=== PATIENT | female | born 1985 | race Caucasian/White ===

== ENCOUNTER 2019-06-05 15:15 | Outpatient (RCR) | payer OTHER, SELFPAY ==
[2019-06-05 17:47] VITALS: BP 109/67; PULSE 98
== END 2019-07-07 08:28 | disposition home or self-care (01) ==
LOC: ANHOBOP 15:15
PROVIDERS: Visit Provider Obstetrics & Gynecology
DX: O36.8190 Decreased fetal movements, unspecified trimester, not applicable or unspecified (principal); Z3A.00 Weeks of gestation of pregnancy not specified
CPT/HCPCS: 59025

== ENCOUNTER 2020-07-22 11:04 | Emergency (ER) | payer OTHER, SELFPAY ==
--- NOTE | ~2020-07-22 | XR_ITS ---
EXAMINATION: XR lumbar spine min 4V DATE: 07/22/2020 12:33 INDICATION: Low back pain TECHNIQUE: Anteroposterior, lateral, and bilateral oblique views of the lumbar spine, and cone-down l ateral view of the lumbosacral junction were obtained. COMPARISON: 09/24/2008 FINDINGS: There is no fracture, dislocation, or subluxation. The vertebral body heights, alignment, a nd intervertebral disc spaces are normal. The paravertebral soft tissues are unremarkable. IMPRESSION: 1. No acute osseous abnormality. Reviewed, dictated and finalized at location A. ER EXPLOSION
[2020-07-22 11:11] VITALS: BP 117/81; PULSE 100; RESP 18; TEMP 36.1; O2SAT 100
--- NOTE | 2020-07-22 13:14 | ED.GENADULT ---
HPI - General Adult General Chief complaint: Back Pain/Injury Stated complaint: back pain Time Seen by Provider: 07/22/20 11:30 Source: patient Mode of arrival: ambulatory Limitations: no limitations History of Present Illness HPI narrative: Patient presents with chief complaint of lumbar pain and spasming that has been intermittent over the past year since the patient had her daughter. Patient states the pain starts in the center lower back and radiates outward. Patient denies loss of bowel or bladder function or saddle paresthesias. Patient states that she has not yet been evaluated for this issue by her primary care. Patient denies any other back injuries or traumas. Patient denies radiation of pain down her legs or loss of motor function to her lower extremities. Related Data Home Medications Medication Instructions Recorded Confirmed ketoconazole TOPICAL 07/22/20 07/22/20 Allergies Allergy/AdvReac Type Severity Reaction Status Date / Time No Known Allergies Allergy Verified 07/22/20 11:15 Review of Systems Review of Systems: Narrative: CONSTITUTIONAL: Denies fever, chills, or sweats. EYES: Denies visual changes, redness, or discharge. ENT: Denies rhinorrhea, congestion, sore throat, or otalgia. CARDIOVASCULAR: Denies chest pain, palpitations, or edema. RESPIRATORY: Denies cough or dyspnea. GASTROINTESTINAL: Denies abdominal pain, nausea, vomiting, or diarrhea. GENITOURINARY: Denies dysuria or hematuria. SKIN: Denies rash or itching. MUSCULOSKELETAL: Reports back pain, denies joint pain, or myalgia. NEUROLOGIC: Denies headache, numbness, dizziness, or weakness. PSYCHIATRIC: Denies anxiety or depression. PMFSH Social History Social History Smoking status: Never smoker Substance use: current Gender identity (if verbalized by the patient): Female Spiritual care concerns: No Exam Narrative: Exam Narrative: GENERAL: Well-appearing, well-nourished, and in no acute distress. HEAD: Normocephalic, atraumatic. EYES: PERRLA and EOMI. NECK: Supple. No adenopathy or masses. CHEST: Clear to auscultation. No respiratory distress. No wheezes rales or rhonchi HEART: Regular rate and rhythm. No murmur heard. Normal peripheral pulses. BACK: Tender to palpation in center lower back as well as paralumbar muscles. Straight leg raise test negative. No saddle paresthesias or loss of range of motion or sensation to lower extremities. EXTREMITIES: Normal range of motion. No edema. SKIN: Warm, dry, no rash. NEURO: No focal deficits. Alert and oriented x3. PSYCH: Normal mood and affect. Course Vital Signs Vital signs: Vital Signs Temperature 97 F L 07/22/20 11:11 Pulse Rate 100 07/22/20 11:11 Respiratory Rate 18 07/22/20 11:11 Blood Pressure 117/81 07/22/20 11:11 Pulse Oximetry 100 07/22/20 11:11 Temperature 97 F L 07/22/20 11:11 Pulse Rate 100 07/22/20 11:11 Respiratory Rate 18 07/22/20 11:11 Blood Pressure 117/81 07/22/20 11:11 Pulse Oximetry 100 07/22/20 11:11 Medical Decision Making MDM Narrative Medical decision making narrative: Patient not show signs of cauda equina or other emergent spinal injury. Patient will be put on prednisone and given cyclobenzaprine. Patient encouraged to practice core strengthening exercises to assist with strain on back. Patient referred to contact her primary care to discuss possible physical therapy or supportive device recommendations. Patient told that if her symptoms persist physical therapy and MRI may be needed to further investigate her symptoms and will be ordered by her primary care provider. Patient to return to emergency department if she has any emergent symptoms. Differential Diagnosis Differential Diagnosis: Cauda equina, fracture, sprain, strain, sciatica Vital Signs Vital Signs: Vital Signs Temperature 97 F L 07/22/20 11:11 Pulse Rate 100 07/22/20 11:11 Resp
[2020-07-22] MEDS: KETOROLAC 30 MG/ML VIAL (*BKC) IM (13:44)
[2020-07-22 13:45] VITALS: BP 126/72; PULSE 82; RESP 16; O2SAT 98
== END 2020-07-22 13:45 | disposition home or self-care (01) ==
PROVIDERS: Emergency Provider Emergency Medicine; PCP Family Medicine
DX: S39.012A Strain of muscle, fascia and tendon of lower back, initial encounter (principal); X58.XXXA Exposure to other specified factors, initial encounter
CPT/HCPCS: 72110; 81025; 96372; 99283; J1885

== ENCOUNTER 2020-10-04 11:00 | Outpatient (RCR) | payer OTHER, SELFPAY ==
--- NOTE | 2020-09-02 10:12 | PTOPEVAL ---
Thank you for referring Jayla Doan to [facility].? The patient is scheduled to be seen for therapy? 2 x/week for 5 weeks. Please review, sign, date and return this plan of care SAM. I agree with and certify that the following plan of care is medically necessary. Referring Physician Date Attending Provider: María Owusu, MD Referring Provider: María Owusu, MD Physical Therapy Evaluation Problem Diagnosis back pain Onset 06/25 Cause epidural injection Subjective Information She reports she has been Query Text:As Reported By Patient/ having back pain since the Family of her child 06/25. She also had increased pain with leaning forward over exercise ball and a yoga trapez when she had severe increased pain in her back region. She reports limitations with community mobility. She is performing stretching, but not able to relieve the symptoms. She c/o back spasm that limit ability to perform daily task She has increased pain with leaning forward. She notes increased pain with carrying her son. She reports limitations with prolonged standing and repeated IADL's. She has increased muscle soreness in the morning. She will feel the muscle soreness into her abdominal region. Previous Treatments For This Problem neck/back- 10 yrs ago Pain Assessment Bilateral Lower Back Reported Pain Level 2 Pain Description Aching,Pulling,Radiating, Soreness,Spasms,Stabbing, Tender on Palpation,Tightness, With Movement Pain Radiation Left Leg,Right Leg Radicular Pain Location pelvic and LE's Pain Frequency Chronic,Continuous Lowest Pain Intensity 1 Greatest Pain Intensity 10 Pain Aggravating Factors ADL's,Bending,Lifting, Prolonged Position,Walking, Weight Bearing/Standing Cervical and Lumbar ROM Lumbar ROM WNL Lower Extremity Range of Motion General Lower Extremity Range of Motion Reason Not Measured WNL/Left,WNL/Right Cervical and Lumbar Muscle Testing Upper Abd
--- NOTE | 2020-09-16 09:58 | PCPTNOTE ---
Patient called at 10:00 am & cancelled scheduled appointment this date due to transportation. She rescheduled for next week.
--- NOTE | 2020-09-22 13:11 | PCPTNOTE ---
Patient called & cancelled scheduled appointment this date due to reason not given. Appointment scheduled for next week.
--- NOTE | 2020-09-28 16:25 | PTOPEVAL ---
Thank you for referring Jayla Doan to [facility].? The patient is scheduled to be seen for therapy? 2 x/week for 3 weeks. See update below for noted improvement and problems to address. Please review, sign, date and return this plan of care SAM. I agree with and certify that the following plan of care is medically necessary. Referring Physician Date Attending Provider: María Owusu, MD Referring Provider: María Owusu, MD Physical therapy progress note Problem Diagnosis back pain Onset 06/25 Cause epidural injection Additional Evaluation Detail She reports she has been having back pain since the of her child 06/25. RA with joint pain with weather changes. Subjective Information She bought a massager for home Query Text:As Reported By Patient/ that has helped with her pain Family and tightness. She continues wake with muscle soreness. She is able to walk 1 to 1 1/ 2 hours before increased pain. She is performing stretching and home program multiple times a week depending on soreness. She denies any back spasm with daily activities. Denies any radiating pain into the leg. Continues to have tightness of sacral/pelvic region Pain Assessment Self Report Pain Assessment Bilateral Lower Back Reported Pain Level 2 Pain Description Aching,Sharp Pain Frequency Chronic Lowest Pain Intensity 1 Greatest Pain Intensity 7 Pain Aggravating Factors Exercise/Activity,Lifting, Prolonged Position,Walking Cervical and Lumbar ROM Lumbar ROM Lumbar Flexion Active Floor Query Text:Hands to: Lateral Flexion lateral knee joint Query Text:Active Hands to: Lumbar ROM WNL Lumbar Comments stretching into low back with lateral flex Lower Extremity Muscle Strength Testing General Lower Extremity Strength Gross Lower Extremity Strength reza hip ext: 4/5, hip abd: 3+/ 5 reza knee ext: 5/5, knee flex: 5/5 Muscle Length Testing Muscle Length Testing Two-Joint Hip Flexor Shortened Muscles Short (R) Iliopsoas,Short (L) Iliopsoas,Short (R) Rectus Femoris,Short (L)
--- NOTE | 2020-10-06 14:36 | PCPTNOTE ---
Patient cancelled apt this date due to not feeling well.
--- NOTE | 2020-10-11 12:23 | PCPTNOTE ---
Patient no showed for apt this date. Called and left voicemail reminding patient of next scheduled apt and to call if she cannot make it.
--- NOTE | 2020-10-14 13:52 | PCPTNOTE ---
Patient did not show up for scheduled appointment this date. Called pt. and left message with details regarding next appt time also.
--- NOTE | 2020-10-18 11:46 | PCPTNOTE ---
Patient did not show up for scheduled appointment this date. Called left message informing her remaining appts will be removed. Will DC her at this time.
--- NOTE | 2020-10-18 11:48 | PCPTNOTE ---
Admitting Provider: Attending Provider: María Owusu, Patient:Jayla Doan Date of :1985 Discharge Note Patient has not returned for any further treatments since 10/04/2020, therefore she will be discharged at this time. Patient?s initial visit was on 09/02/2020 09:00 and she had a total of 6 visits with 6 no show/canceled visits. The goals have been partially met with no change in function since last update on 09/28/20. Thank you for referring this patient to [facility]. Please review, sign, date and return this discharge summary SAM. I have been updated about the patient's current status and I agree with discharge from the above service at this time. Referring Physician Date
== END 2020-10-19 08:38 | disposition home or self-care (01) ==
LOC: ANHPT 11:00
PROVIDERS: PCP Family Medicine; Referring Provider Family Medicine; Visit Provider Family Medicine
DX: M54.5 Low back pain (principal)
CPT/HCPCS: 97110; 97140; 97161; 97530

== ENCOUNTER 2022-07-31 15:47 | Emergency (ER) | payer OTHER, SELFPAY ==
[2022-07-31 16:05] VITALS: BP 153/78; PULSE 106; RESP 16; TEMP 37.5; O2SAT 16
--- NOTE | 2022-07-31 16:23 | ED.URI ---
HPI - URI/Sore Throat General Chief Complaint: Upper Respiratory Infection Stated Complaint: sore throat Time Seen by Provider: 07/31/22 16:23 Source: patient and RN notes reviewed Mode of arrival: ambulatory Limitations: no limitations History of Present Illness HPI Narrative: 37-year-old female presents with concern for sore throat, body aches, exposure to strep throat. She also reports exposure to pinkeye, her left eye is become itchy and feels like there is sand in it. MD elicited complaint: sore throat and other (Eye itching) Related Data Home Medications Medication Instructions Recorded Confirmed cyclobenzaprine 10 mg tablet 10 mg PO DAILY 07/31/22 07/31/22 leflunomide 20 mg tablet 20 mg PO DAILY 07/31/22 07/31/22 Allergies Allergy/AdvReac Type Severity Reaction Status Date / Time No Known Allergies Allergy Verified 07/31/22 16:10 Review of Systems Review of Systems: CONSTITUTIONAL: Denies malaise, chills, sweats, or fever. EYES: Denies visual changes . reports left eye irritation, redness. Denies discharge. ENT: Denies rhinorrhea, congestion, sinus pain, otalgia. Reports sore throat. CARDIOVASCULAR: Denies chest pain, palpitations, or edema. RESPIRATORY: Denies cough. Denies dyspnea. GASTROINTESTINAL: Denies abdominal pain, nausea, vomiting, diarrhea SKIN: Denies rash or itching. MUSCULOSKELETAL: Reports myalgia. NEUROLOGIC: Denies headache. All systems reviewed & are unremarkable except as noted in HPI and below PMFSH Social History Social History Smoking status: Never smoker Substance use: current Gender identity (if verbalized by the patient): Female Spiritual care concerns: No Comments At time of signature, agree with nursing past medical, surgical, social and family history. There is no relevant family history pertinent to the presenting complaint Exam Narrative: GENERAL: Well-appearing, well-nourished, and in no acute distress. HEAD: Normocephalic EYES: PERRLA. Left sclera and conjunctivae slightly injected ENT: Nares clear, turbinates edematous and erythematous, clear discharge. Mucous membranes moist. TM pearly solis with dull light reflex bilaterally; no tragal tenderness. Oropharynx erythematous without lesions. Tonsils not enlarged and without exudate, no drooling, no hoarseness, no trismus, uvula midline. NECK: Supple. No lymphadenopathy CHEST: Clear to auscultation, breath sounds equal. No wheezing, rhonchi, rales, or stridor. No respiratory distress, speaks in full sentences. HEART: Regular rate and rhythm. No murmur heard. SKIN: Warm, dry, no rash. NEURO: Alert and oriented x3. PSYCH: Normal mood and affect Course Course Emergency Course: Patient is aware of diagnosis, understands and agrees to treatment plan. Anticipatory guidance given. Patient agrees to follow-up as directed and is aware of reasons to seek care at the emergency department. Portions of this record may have been created with voice recognition software Level of Care: Express Care Visit Vital Signs Vital signs: Vital Signs Temperature 99.5 F 07/31/22 16:05 Pulse Rate 106 H 07/31/22 16:05 Respiratory Rate 16 07/31/22 16:05 Blood Pressure 153/78 H 07/31/22 16:05 Pulse Oximetry 16 L 07/31/22 16:05 Oxygen Delivery Room Air 07/31/22 16:05 Temperature 99.5 F 07/31/22 16:05 Pulse Rate 106 H 07/31/22 16:05 Respiratory Rate 16 07/31/22 16:05 Blood Pressure 153/78 H 07/31/22 16:05 Pulse Oximetry 16 L 07/31/22 16:05 Oxygen Delivery Room Air 07/31/22 16:05 Reviewed. MDM - URI/Sore Throat MDM Narrative Medical decision making narrative: Differential diagnosis considered: Cardona virus, strep pharyngitis, allergic rhinitis, upper respiratory tract infection, sinusitis, rhinosinusitis, nasopharyngitis. viral pharyngitis, otitis media, otitis externa, pneumonia, bronchitis, viral cough syndrome, viral syndrome, and in
== END 2022-07-31 16:33 | disposition home or self-care (01) ==
PROVIDERS: Emergency Provider Nurse Practitioner; PCP Physician Assistant
DX: J02.0 Streptococcal pharyngitis (principal); H10.9 Unspecified conjunctivitis
CPT/HCPCS: 87880; 99213; G0463

== ENCOUNTER 2024-12-29 09:45 | Outpatient (CLI) | payer OTHER, SELFPAY ==
--- NOTE | ~2024-12-29 | XR_ITS ---
EXAM/ PROCEDURE: XR lumbar spine 2-3V - 12/29/2024 10:00 CDT HISTORY: 39 years old Female with CHRONIC PRIMARY LBP W/BILAT LEG BUCKLING COMPARISON: None available TECHNIQUE: Four view(s) FINDINGS/ IMPRESSION: There are no fractures or dislocations.Intervertebral disc spaces are within normal limits. Reviewed, dictated and finalized at location A.
== END 2024-12-29 09:46 | disposition home or self-care (01) ==
PROVIDERS: PCP Physician Assistant; Visit Provider Physician Assistant
DX: M54.59 Other low back pain (principal); G89.29 Other chronic pain
CPT/HCPCS: 72100